=== PATIENT | male | born 1950 | race Two or more races ===

== ENCOUNTER → 2018-06-22 | Emergency (ER) | payer OTHER ==
[~2018-06-22] VITALS: Ht 172.7 cm; Wt 90.7 kg
[~2018-06-22] MED LIST: ANUSOL-HC25 MG RECTAL; CATAFLAM50 MG PO; COZAAR PO; DEPO-MEDROL40 MG/ML IM; INTESTINEX1 CA1 PO; LOSARTAN-HCTZ1 EAC2; NORFLEX100MG PO; XYLOCAINE-MP10 MG/ML IM; ZANTAC150 MG PO; ZOCOR5 MG; ZoCOR 20MG TABLET PO
== END | disposition home or self-care (01) ==
LOC: ER 18:19
DX: K64.4 Residual hemorrhoidal skin tags (principal); K57.32 Diverticulitis of large intestine without perforation or abscess without bleeding

== ENCOUNTER 2018-07-18 16:03 | Emergency (ER) | payer OTHER ==
[~2018-07-18] VITALS: Ht 172.7 cm; Wt 97.5 kg
== END 2018-07-18 19:54 | disposition home or self-care (01) ==
LOC: ER 16:03
DX: K57.30 Diverticulosis of large intestine without perforation or abscess without bleeding (principal); R10.32 Left lower quadrant pain

== ENCOUNTER 2018-10-17 13:01 | Emergency (ER) | payer OTHER ==
[~2018-10-17] VITALS: Ht 172.7 cm; Wt 99.8 kg
== END 2018-10-17 17:26 | disposition home or self-care (01) ==
LOC: ER 13:01
DX: K57.30 Diverticulosis of large intestine without perforation or abscess without bleeding (principal); R10.32 Left lower quadrant pain

== ENCOUNTER 2020-02-23 09:24 | Emergency (ER) | payer OTHER ==
[~2020-02-23] VITALS: Ht 172.7 cm; Wt 102.1 kg
[2020-02-23] MEDS ORDERED: ELIQUIS5 MG (09:46)
[2020-02-23] MEDS ORDERED: CIPRO500 MG PO (16:25)
[2020-02-23] MEDS ORDERED: FLAGYL500MG PO (16:25)
[2020-02-23] MEDS ORDERED: INTESTINEX680 M1 PO (16:25)
[2020-02-23] MEDS ORDERED: PEPCID AC20 MG PO (16:25)
== END 2020-02-23 16:54 | disposition home or self-care (01) ==
LOC: ER 09:24
DX: K57.92 Diverticulitis of intestine, part unspecified, without perforation or abscess without bleeding (principal)

== ENCOUNTER 2020-03-17 16:57 | Emergency (ER) | payer OTHER ==
[~2020-03-17] VITALS: Ht 175.3 cm; Wt 102.1 kg
[~2020-03-17 16:57] MED LIST changes: +CIPRO500 MG PO; +ELIQUIS5 MG; +FLAGYL500MG PO; +INTESTINEX680 M1 PO; +PEPCID AC20 MG PO
== END 2020-03-17 20:14 | disposition home or self-care (01) ==
LOC: ER 16:57
DX: S51.852A Open bite of left forearm, initial encounter (principal); W54.0XXA Bitten by dog, initial encounter; Y93.89 Activity, other specified; Y92.89 Other specified places as the place of occurrence of the external cause; Y99.8 Other external cause status

== ENCOUNTER 2022-01-16 13:58 | Outpatient (CLI) | payer OTHER | END 2022-01-16 14:01 | disposition home or self-care (01) | LOC: SONOGRAMA 13:58 | PROVIDERS: ATTEND Pathology Anatomic Pathology & Clinical Pathology | DX: D34 Benign neoplasm of thyroid gland (principal); E04.9 Nontoxic goiter, unspecified; E04.1 Nontoxic single thyroid nodule ==